=== PATIENT | male | born 1955 | race Caucasian/White ===

== ENCOUNTER 2022-06-02 09:15 | Outpatient (CLI) | payer MEDICARE | END 2022-06-02 09:16 | disposition home or self-care (01) | LOC: CSHCT 09:15 | PROVIDERS: ATTEND Internal Medicine Hematology & Oncology | DX: N18.9 Chronic kidney disease, unspecified (principal); R91.1 Solitary pulmonary nodule | CPT/HCPCS: 71250; 74177 ==

== ENCOUNTER 2023-01-31 07:44 | Outpatient (CLI) | payer MEDICARE | END 2023-01-31 07:45 | disposition home or self-care (01) | LOC: CSHCT 07:44 | PROVIDERS: ATTEND Internal Medicine Nephrology | DX: M79.89 Other specified soft tissue disorders (principal); N20.0 Calculus of kidney; Z96.0 Presence of urogenital implants; Z90.6 Acquired absence of other parts of urinary tract; Z90.79 Acquired absence of other genital organ(s); R16.1 Splenomegaly, not elsewhere classified | CPT/HCPCS: 74176 ==